=== PATIENT | female | born 1955 | race Caucasian/White ===

== ENCOUNTER 2022-05-29 07:39 | Inpatient (IN) | payer MEDICAID ==
[~2022-05-29] VITALS: Ht 157.5 cm; Wt 64.4 kg
[2022-05-29] MEDS ORDERED: VANCOMYCIN 1G PREMIX 200 ML IV ONE (08:30)
[2022-05-29] MEDS ORDERED: PIPERACILLIN/TAZ 3.375G PREMIX 50 ML IV ONE (08:30)
[2022-05-29 08:56] LABS: BASOPHILS % 1.2 % (0.0-2.0); EOSINOPHILS % 1.6 % (0.0-5.0); HEMATOCRIT. 48.5 % (36.0-48.0); HEMOGLOBIN. 15.8 g/dL (12.0-16.0); LYMPHOCYTES % 22.7 % (20.0-50.0); MEAN CORPUSCULAR HEMOGLOBIN 29.6 pg (28.0-32.0); MEAN CORPUSCULAR VOLUME 90.6 fL (81.0-99.0); MEAN PLATELET VOLUME 8.7 fl (7.4-10.4); NEUTROPHILS % 63.5 % (40.0-76.0); PLATELET 251 x1000/uL (130-400); RED BLOOD CELL COUNT 5.35 mill/uL (4.2-5.4); RED CELL DISTRIBUTION WIDTH 18.5 % (11.6-14.6)
[2022-05-29 08:58] LABS: CHLORIDE 103 mEq/L (98-107)
[2022-05-29] MEDS ORDERED: ONDANSETRON HCL 4MG/2ML INJ IV STA (09:00)
[2022-05-29] MEDS ORDERED: MORPHINE SULFATE 4 MG/ML CPJ (NOT FOR IM USE) IV STA (09:00)
[2022-05-29 09:07] LABS: CREATINE KINASE 85 IU/L (26-192); ETHANOL BLOOD 71 mg/dL
[2022-05-29 13:33] LABS: CLARITY URINE CLEAR (CLEAR); COLOR URINE DARK YELLOW (YELLOW); KETONES URINE NEGATIVE (NEGATIVE); LEUKOCYTE ESTERASE URINE NEGATIVE (NEGATIVE); NITRITE URINE NEGATIVE (NEGATIVE); OCCULT BLOOD URINE 1+ (NEGATIVE); PH URINE 5.5 (4.5-8.0); PROTEIN URINE 2+ (NEGATIVE); SPECIFIC GRAVITY URINE 1.021 (1.005-1.030)
[2022-05-29 14:02] LABS: *AMPHETAMINES SCREEN URINE PRESUMTIVE POSITIVE (NEGATIVE); *BARBITURATES SCREEN URINE NEGATIVE (NEGATIVE); *BENZODIAZEPINES SCREEN URINE NEGATIVE (NEGATIVE); *COCAINE SCREEN URINE NEGATIVE (NEGATIVE); CANNABINOID URINE SCREEN NEGATIVE (NEGATIVE); METHADONE URINE SCREEN NEGATIVE (NEGATIVE); OPIATES URINE SCREEN PRESUMTIVE POSITIVE (NEGATIVE); PHENCYCLIDINE URINE SCREEN NEGATIVE (NEGATIVE)
[2022-05-29 16:00] VITALS: BP 118/70
[2022-05-29] MEDS ORDERED: MAGNESIUM/ALUMINUM HYDROXIDE/SIMETHICONE 30ML UDC PO PRN (16:30)
[2022-05-29] MEDS ORDERED: GUAIFENESIN 200MG/10ML SUGAR FREE UDC PO PRN (16:30)
[2022-05-29] MEDS ORDERED: CLONIDINE 0.1MG TABLET PO PRN (16:30)
[2022-05-29] MEDS ORDERED: ONDANSETRON HCL 4MG/2ML INJ IV PRN (16:30)
[2022-05-29] MEDS ORDERED: IPRATROPIUM/ALBUTEROL 0.5-3(2.5)MG/3ML NEB NEB PRN (16:30)
[2022-05-29] MEDS ORDERED: MAGNESIUM HYDROXIDE 400MG/5ML 30ML UDC PO PRN (16:30)
[2022-05-29] MEDS ORDERED: ACETAMINOPHEN 325MG TABLET PO PRN ×2 (16:30)
[2022-05-29 16:40] VITALS: BP 126/66
[2022-05-29] MEDS ORDERED: DEXTROSE 50% WATER 50ML SYRINGE IV NR (17:00)
[2022-05-29] MEDS ORDERED: DEXTROSE 50% WATER 50ML SYRINGE IV PRN ×2 (17:30→17:45)
[2022-05-29] MEDS: OXYCODONE HCL 5MG TABLET PO PRN ×2 (17:38→22:36)
[2022-05-29] MEDS: SENNOSIDES/DOCUSATE SOD 8.6/50MG TABLET PO SCH (17:47)
[2022-05-29] MEDS: INSULIN LISPRO 100 UNITS/ML SUBCUT SCH ×2 (17:50→21:00)
[2022-05-29] MEDS: ENOXAPARIN 40MG/0.4ML SYR SUBCUT SCH (17:56)
[2022-05-29 20:00] VITALS: BP 109/68
[2022-05-29] MEDS: BLOOD SUGAR DIAGNOSTIC STRIP TEST SCH (21:00)
[2022-05-29 23:12] VITALS: BP 128/76
[2022-05-29 23:13] VITALS: BP 118/70
[2022-05-30] VITALS (8 sets, daily range): BP systolic 91–116; BP diastolic 52–75
[2022-05-30] MEDS: OXYCODONE HCL 5MG TABLET PO PRN ×3 (02:03→20:37)
[2022-05-30 06:43] LABS: BASOPHILS % 0.8 % (0.0-2.0); EOSINOPHILS % 0.9 % (0.0-5.0); HEMATOCRIT. 46.6 % (36.0-48.0); HEMOGLOBIN. 14.8 g/dL (12.0-16.0); LYMPHOCYTES % 20.2 % (20.0-50.0); MEAN CORPUSCULAR VOLUME 91.1 fL (81.0-99.0); MEAN PLATELET VOLUME 9.1 fl (7.4-10.4); MONOCYTES % 13.6 % (2.0-8.0); NEUTROPHILS % 64.5 % (40.0-76.0); PLATELET 264 x1000/uL (130-400); RED BLOOD CELL COUNT 5.11 mill/uL (4.2-5.4)
[2022-05-30 06:46] LABS: CHLORIDE 100 mEq/L (98-107)
[2022-05-30 06:52] LABS: PROTHROMBIN TIME 13.1 sec (9.6-11.0)
[2022-05-30 06:53] LABS: INR 1.2
[2022-05-30] MEDS: BLOOD SUGAR DIAGNOSTIC STRIP TEST SCH ×4 (07:20→21:00)
[2022-05-30] MEDS: INSULIN LISPRO 100 UNITS/ML SUBCUT SCH ×4 (07:50→21:00)
[2022-05-30] MEDS: SENNOSIDES/DOCUSATE SOD 8.6/50MG TABLET PO SCH ×3 (08:57→16:25)
[2022-05-30] MEDS: POLYETHYLENE GLYCOL 3350 (17GM) 1 DOSE PACK PO SCH (08:57)
[2022-05-30 09:18] LABS: T4 FREE 1.03 ng/dL (0.76-1.46)
[2022-05-30] MEDS ORDERED: DIATR MEGLU/DIATRIZOATE SOLN 30ML PO NR ×2 (09:30→15:45)
[2022-05-30] MEDS: SODIUM CHLORIDE 0.9% 1,000 ML IV SCH ×2 (11:30→22:11)
[2022-05-30 17:28] LABS: CREATINE KINASE 78 IU/L (26-192); CREATINE KINASE MB FRACTION 3.5 ng/mL (0.5-3.6)
[2022-05-30] MEDS: ENOXAPARIN 40MG/0.4ML SYR SUBCUT SCH (18:00)
[2022-05-30] MEDS ORDERED: VANCOMYCIN 1GM PMX (XELLIA) 200 ML IV SCH (18:30)
[2022-05-30] MEDS: VANCOMYCIN 1GM PMX (XELLIA) 200 ML IV SCH (20:32)
[2022-05-30] MEDS: CEFEPIME 1,000 MG in DEXTROSE 5% WATER 50 ML IV SCH (20:33)
[2022-05-31] VITALS: BP 100/64
[2022-05-31 01:21] LABS: CREATINE KINASE MB FRACTION 2.6 ng/mL (0.5-3.6)
[2022-05-31 04:00] VITALS: BP 97/52
[2022-05-31 07:04] LABS: CREATINE KINASE MB FRACTION 2.9 ng/mL (0.5-3.6)
[2022-05-31] MEDS: BLOOD SUGAR DIAGNOSTIC STRIP TEST SCH ×4 (07:20→20:18)
[2022-05-31] MEDS: INSULIN LISPRO 100 UNITS/ML SUBCUT SCH ×4 (07:50→20:18)
[2022-05-31 08:03] VITALS: BP_SYST 101; BP_SYST 135; BP_DIAS 70; BP_DIAS 81
[2022-05-31] MEDS: SENNOSIDES/DOCUSATE SOD 8.6/50MG TABLET PO SCH ×2 (09:17→18:36)
[2022-05-31] MEDS: CEFEPIME 1,000 MG in DEXTROSE 5% WATER 50 ML IV SCH ×2 (09:17→20:16)
[2022-05-31] MEDS: POLYETHYLENE GLYCOL 3350 (17GM) 1 DOSE PACK PO SCH (09:18)
[2022-05-31] MEDS: OXYCODONE HCL 5MG TABLET PO PRN ×2 (09:18→15:52)
[2022-05-31] MEDS: SODIUM CHLORIDE 0.9% 1,000 ML IV SCH ×2 (09:19→18:38)
[2022-05-31 12:00] VITALS: BP 126/75
[2022-05-31] MEDS ORDERED: POTASSIUM CHLORIDE 20MEQ TABLET SR PO ONE (12:45)
[2022-05-31] MEDS ORDERED: SPIRONOLACTONE 25MG TABLET PO SCH (15:15)
[2022-05-31] MEDS ORDERED: NALOXONE HCL 0.4MG/ML VIAL IV PRN (15:30)
[2022-05-31 16:30] VITALS: BP 118/74
[2022-05-31 17:28] LABS: BASOPHILS % 0.9 % (0.0-2.0); EOSINOPHILS % 1.1 % (0.0-5.0); MEAN CORPUSCULAR HEMOGLOBIN 28.5 pg (28.0-32.0); MEAN CORPUSCULAR VOLUME 91.1 fL (81.0-99.0); MEAN PLATELET VOLUME 8.9 fl (7.4-10.4); MONOCYTES % 13.9 % (2.0-8.0); NEUTROPHILS % 66.1 % (40.0-76.0); PLATELET 273 x1000/uL (130-400); RED BLOOD CELL COUNT 5.27 mill/uL (4.2-5.4); RED CELL DISTRIBUTION WIDTH 17.7 % (11.6-14.6)
[2022-05-31 17:46] LABS: PHOSPHORUS 4.5 mg/dL (2.5-4.9)
[2022-05-31] MEDS: ENOXAPARIN 40MG/0.4ML SYR SUBCUT SCH ×2 (18:36→18:40)
[2022-05-31 20:00] VITALS: BP 122/77
[2022-05-31] MEDS: VANCOMYCIN 1GM PMX (XELLIA) 200 ML IV SCH (20:16)
[2022-06-01] VITALS: BP 116/69
[2022-06-01] MEDS: SODIUM CHLORIDE 0.9% 1,000 ML IV SCH ×4 (03:30→23:30)
[2022-06-01 04:00] VITALS: BP 111/60
[2022-06-01] MEDS: OXYCODONE HCL 5MG TABLET PO PRN ×3 (05:33→20:57)
[2022-06-01] MEDS: BLOOD SUGAR DIAGNOSTIC STRIP TEST SCH ×4 (05:43→20:46)
[2022-06-01 05:59] LABS: EOSINOPHILS % 1.9 % (0.0-5.0); HEMATOCRIT. 46.2 % (36.0-48.0); HEMOGLOBIN. 14.3 g/dL (12.0-16.0); MEAN CORPUSCULAR HEMOGLOBIN 28.6 pg (28.0-32.0); MEAN CORPUSCULAR VOLUME 92.7 fL (81.0-99.0); MEAN PLATELET VOLUME 8.7 fl (7.4-10.4); MONOCYTES % 13.1 % (2.0-8.0); PLATELET 297 x1000/uL (130-400); RED BLOOD CELL COUNT 4.98 mill/uL (4.2-5.4); RED CELL DISTRIBUTION WIDTH 18.4 % (11.6-14.6)
[2022-06-01 06:36] LABS: PHOSPHORUS 4.1 mg/dL (2.5-4.9)
[2022-06-01] MEDS: INSULIN LISPRO 100 UNITS/ML SUBCUT SCH ×4 (07:50→20:47)
[2022-06-01 08:00] VITALS: BP 127/78
[2022-06-01] MEDS ORDERED: DEXT 5%/LACTATED RINGERS 1,000 ML IV NR (08:00)
[2022-06-01] MEDS ORDERED: LACTULOSE 20G/30ML UDC PO NR (09:00)
[2022-06-01] MEDS: POLYETHYLENE GLYCOL 3350 (17GM) 1 DOSE PACK PO SCH (09:00)
[2022-06-01] MEDS: CEFEPIME 1,000 MG in DEXTROSE 5% WATER 50 ML IV SCH ×2 (10:05→20:46)
[2022-06-01] MEDS: SENNOSIDES/DOCUSATE SOD 8.6/50MG TABLET PO SCH ×3 (10:06→17:09)
[2022-06-01] MEDS: MIDODRINE HCL 5MG TABLET PO SCH ×4 (10:07→17:09)
[2022-06-01 12:00] VITALS: BP 130/70
[2022-06-01] MEDS ORDERED: MORPHINE SULFATE 4 MG/ML CPJ (NOT FOR IM USE) IV NR (13:30)
[2022-06-01] MEDS: OCTREOTIDE 1,000 MCG in SODIUM CHLORIDE 0.9% 98 ML IV SCH (13:31)
[2022-06-01 14:20] LABS: HEPATITIS B SURFACE ANTIGEN NEGATIVE
[2022-06-01 16:00] VITALS: BP 144/88
[2022-06-01 20:00] VITALS: BP 127/75
[2022-06-01] MEDS: VANCOMYCIN 1GM PMX (XELLIA) 200 ML IV SCH (20:46)
[2022-06-02] VITALS (7 sets, daily range): BP systolic 127–151; BP diastolic 73–80
[2022-06-02] MEDS: OXYCODONE HCL 5MG TABLET PO PRN ×3 (01:38→18:31)
[2022-06-02] MEDS: OCTREOTIDE 1,000 MCG in SODIUM CHLORIDE 0.9% 98 ML IV SCH (05:28)
[2022-06-02] MEDS: BLOOD SUGAR DIAGNOSTIC STRIP TEST SCH ×3 (05:28→17:20)
[2022-06-02 05:38] LABS: HEMATOCRIT. 48.2 % (36.0-48.0); HEMOGLOBIN. 15.1 g/dL (12.0-16.0); MEAN CORPUSCULAR HEMOGLOBIN 28.7 pg (28.0-32.0); MEAN CORPUSCULAR VOLUME 91.8 fL (81.0-99.0); MEAN PLATELET VOLUME 8.7 fl (7.4-10.4); PLATELET 275 x1000/uL (130-400); RED BLOOD CELL COUNT 5.24 mill/uL (4.2-5.4); RED CELL DISTRIBUTION WIDTH 18.2 % (11.6-14.6)
[2022-06-02 05:47] LABS: INR 1.3; PARTIAL THROMBOPLASTIN TIME 30.3 sec (23.4-31.0); PROTHROMBIN TIME 13.7 sec (9.6-11.0)
[2022-06-02 06:10] LABS: PHOSPHORUS 3.8 mg/dL (2.5-4.9)
[2022-06-02] MEDS: INSULIN LISPRO 100 UNITS/ML SUBCUT SCH ×3 (07:50→17:50)
[2022-06-02] MEDS: POLYETHYLENE GLYCOL 3350 (17GM) 1 DOSE PACK PO SCH (09:00)
[2022-06-02] MEDS: SENNOSIDES/DOCUSATE SOD 8.6/50MG TABLET PO SCH ×2 (09:00→17:00)
[2022-06-02] MEDS ORDERED: ENOXAPARIN 30MG/0.3ML SYR SUBCUT SCH (09:00)
[2022-06-02] MEDS: MIDODRINE HCL 5MG TABLET PO SCH ×3 (09:00→17:00)
[2022-06-02] MEDS: SODIUM CHLORIDE 0.9% 1,000 ML IV SCH ×2 (09:30→19:27)
[2022-06-02] MEDS ORDERED: OCTREOTIDE 1,000 MCG in SODIUM CHLORIDE 0.9% 98 ML IV SCH (10:00)
[2022-06-02] MEDS ORDERED: MORPHINE SULFATE 4 MG/ML CPJ (NOT FOR IM USE) IV NR (10:45)
[2022-06-02] MEDS: CEFEPIME 1,000 MG in DEXTROSE 5% WATER 50 ML IV SCH ×2 (10:51→21:00)
[2022-06-02 11:41] LABS: PLATELET ESTIMATE NORMAL
[2022-06-02] MEDS ORDERED: AMOX250S70 MT (16:58)
[2022-06-02] MEDS ORDERED: DOXY150T5 MT (16:58)
[2022-06-02] MEDS: VANCOMYCIN 1GM PMX (XELLIA) 200 ML IV SCH (20:00)
[2022-06-03] VITALS: BP 126/70
== END 2022-06-03 00:01 | DRG 383 ==
LOC: ER 07:39 → 6EST 12:22 → EDBEDREQSVC 12:23 → EDBEDREQTM 12:23 → EDBEDREQ 12:23 → ENRESERV 15:10 → 6WST 05-30 01:43
PROVIDERS: ADMIT Internal Medicine; ATTEND Internal Medicine
PROC: 0W9G3ZZ Drainage of Peritoneal Cavity, Percutaneous Approach (ICD-10-PCS; principal; 2022-06-02)
DX: L03.115 Cellulitis of right lower limb (principal); K76.7 Hepatorenal syndrome; E72.20 Disorder of urea cycle metabolism, unspecified; I50.23 Acute on chronic systolic (congestive) heart failure; K70.31 Alcoholic cirrhosis of liver with ascites; L03.116 Cellulitis of left lower limb; I13.0 Hypertensive heart and chronic kidney disease with heart failure and stage 1 through stage 4 chronic kidney disease, or unspecified chronic kidney disease; N17.9 Acute kidney failure, unspecified; G82.20 Paraplegia, unspecified; E11.51 Type 2 diabetes mellitus with diabetic peripheral angiopathy without gangrene; E11.22 Type 2 diabetes mellitus with diabetic chronic kidney disease; E11.65 Type 2 diabetes mellitus with hyperglycemia; R47.81 Slurred speech; E78.5 Hyperlipidemia, unspecified; I48.91 Unspecified atrial fibrillation; Z20.822 Contact with and (suspected) exposure to COVID-19; N18.30 Chronic kidney disease, stage 3 unspecified; I70.202 Unspecified atherosclerosis of native arteries of extremities, left leg; I35.1 Nonrheumatic aortic (valve) insufficiency; I07.1 Rheumatic tricuspid insufficiency; E03.8 Other specified hypothyroidism; R74.01 Elevation of levels of liver transaminase levels; E87.5 Hyperkalemia; R23.0 Cyanosis; F10.10 Alcohol abuse, uncomplicated; F19.10 Other psychoactive substance abuse, uncomplicated; F17.200 Nicotine dependence, unspecified, uncomplicated; F15.90 Other stimulant use, unspecified, uncomplicated; Z74.01 Bed confinement status; Z86.718 Personal history of other venous thrombosis and embolism; Z82.49 Family history of ischemic heart disease and other diseases of the circulatory system; Z41.1 Encounter for cosmetic surgery; Z98.82 Breast implant status; E11.649 Type 2 diabetes mellitus with hypoglycemia without coma; S81.801A Unspecified open wound, right lower leg, initial encounter; S81.802A Unspecified open wound, left lower leg, initial encounter
CPT/HCPCS: 36415; 49083; 71045; 74176; 76700; 80048; 80053; 80061; 80076; 80202; 80305; 80320; 81003; 82040; 82140; 82248; 82550; 82553; 82962; 83036; 83605; 83735; 83880; 84100; 84145; 84439; 84443; 84484; 85025; 85651; 86140; 86705; 86709; 86803; 87075; 87340; 87426; 93005; 93306; 93923; 93970; 97161; 99285; J0692; J1650; J1815; J2270; J2354; J2405; J2543; J3370; J7030; J7050; J7060; Q9963; G0480